=== PATIENT | female | born 1995 | race Caucasian/White ===

== ENCOUNTER 2017-09-27 14:38 | Emergency (ER) | payer BC ==
[~2017-09-27] VITALS: Ht 154.9 cm; Wt 63.8 kg
[~2017-09-27 14:38] MED LIST: AMITIZA24 MICROGR PO; NAPROXEN500 MG PO; ZYRTEC10 M2 PO
[2017-09-27 14:41] VITALS: BP 126/85
[2017-09-27] MEDS ORDERED: AUGMENTIN875 MG PO ×2 (15:26→15:27)
== END 2017-09-27 15:56 | disposition home or self-care (01) ==
LOC: EME 14:38
DX: H61.891 Other specified disorders of right external ear (principal); Z88.2 Allergy status to sulfonamides
CPT/HCPCS: 99281; 99283